=== PATIENT | male | born 1985 | race Hispanic/Latino ===

== ENCOUNTER 2020-07-06 20:15 | Emergency (ER) | payer SELFPAY ==
[~2020-07-06] VITALS: Ht 160 cm; Wt 77.3 kg
[2020-07-06 20:15] VITALS: BP 121/74
[2020-07-06 21:16] LABS: BASO # 0.1 10^3/uL (0.0-0.2); BASO % 0.6 % (0.0-1.0); EOS # 0.2 10^3/uL (0.0-0.5); EOS % 2.1 % (0.0-3.0); HEMOGLOBIN 16.3 g/dl (13.5-17.5); LYMPH # 2.1 10^3/uL (1.5-5.0); LYMPH % 24.4 % (24.0-44.0); MEAN CORPUSCULAR HEMOGLOBIN 31.5 pg (27.0-33.0); MEAN CORPUSCULAR HGB CONC 34.7 g/dl (32.0-36.5); MEAN CORPUSCULAR VOLUME 90.9 fl (80.0-96.0); MONO # 0.7 10^3/uL (0.0-0.8); MONO % 8.8 % (2.0-8.0); NEUTROPHILS # 5.4 10^3/uL (1.5-8.5); PLATELET COUNT, AUTOMATED 215 10^3/uL (150-450); RED BLOOD COUNT 5.17 10^6/uL (4.30-6.10); WHITE BLOOD COUNT 8.5 10^3/uL (4.0-10.0)
[2020-07-06 21:48] LABS: BILIRUBIN,DIRECT 0.1 MG/DL (0.0-0.2); BILIRUBIN,TOTAL 0.5 MG/DL (0.2-1.0); TOTAL PROTEIN 7.1 GM/DL (6.4-8.2)
--- NOTE | 2020-07-07 00:48 | REPVR ---
PROCEDURE INFORMATION: Exam: CT Abdomen And Pelvis Without Contrast Exam date and time: 07/06/2020 10:11 PM Age: 35 years old Clinical indication: Abdominal pain; Flank; Other: Bilat; Additional info: B/l flank pain TECHNIQUE: Imaging protocol: Computed tomography of the abdomen and pelvis without contrast. Radiation optimization: All CT scans at this facility use at least one of these dose optimization techniques: automated exposure control; mA and/or kV adjustment per patient size (includes targeted exams where dose is matched to clinical indication); or iterative reconstruction. COMPARISON: No relevant prior studies available. FINDINGS: Liver: There are no focal liver lesions present. Gallbladder and bile ducts: The gallbladder is normal. Pancreas: The pancreas is normal. Spleen: The spleen is normal. Adrenal glands: The adrenal glands are normal. Kidneys and ureters: The kidneys are normal. There is no perinephric stranding or fluid. No renal, ureteral, or bladder calculi are seen. Stomach and bowel: The stomach is normal. Retained fecal material is noted in the colon. Appendix: A normal appendix is identified. Intraperitoneal space: There is no free intraperitoneal air visualized. There is no evidence of free intraperitoneal or pelvic fluid. Vasculature: The vasculature is normal. Lymph nodes: No lymphadenopathy. Urinary bladder: The bladder is normal. Reproductive: Unremarkable as visualized. Bones/joints: Unremarkable. No acute fracture. Soft tissues: There are small bilateral fat containing inguinal hernias. IMPRESSION: No acute the abnormality identified in the abdomen or pelvis. Electronically signed by: Sena Myers On 07/07/2020 00:48:30 AM
[2020-07-07] MEDS ORDERED: LIDOCAINE 1% SDV 5ML VIAL DILUENT ONE (01:15)
[2020-07-07] MEDS ORDERED: cefTRIAXone 500MG VIAL (J0696 PER 250MG) IM ONE (01:15)
[2020-07-07] MEDS ORDERED: DOXYCYCLINE HYCLATE 100MG TABLET PO ONE (01:15)
[2020-07-07] MEDS ORDERED: DOXY100C37 PO (01:16)
[2020-07-07] MEDS ORDERED: PYRI1TAB5 PO (01:43)
== END 2020-07-07 02:01 | disposition home or self-care (01) ==
LOC: M ED 20:15
DX: R30.0 Dysuria (principal)
CPT/HCPCS: 36415; 74176; 80047; 80076; 81001; 83690; 85025; 87490; 87590; 99284; J0696

== ENCOUNTER 2021-10-10 16:46 | Emergency (ER) | payer OTHER, SELFPAY ==
[~2021-10-10] VITALS: Ht 162.6 cm; Wt 93.4 kg
[~2021-10-10 16:46] MED LIST: DOXY-443 PO; PYRI1TAB5 PO
[2021-10-10] MEDS ORDERED: TETRACAINE 0.5% OPHTH SOLN 4ML OU ONE (18:00)
[2021-10-10] MEDS ORDERED: FLUORESCEIN OPHTH 1 MG STRIP OU ONE (18:05)
[2021-10-10] MEDS ORDERED: CIPR0.3S6 OP (18:55)
[2021-10-10 19:01] VITALS: BP 129/83
== END 2021-10-10 19:11 | disposition home or self-care (01) ==
LOC: M ED 16:46
DX: S05.91XA Unspecified injury of right eye and orbit, initial encounter (principal); S05.92XA Unspecified injury of left eye and orbit, initial encounter; Z77.098 Contact with and (suspected) exposure to other hazardous, chiefly nonmedicinal, chemicals